=== PATIENT | female | born 1960 | race Caucasian/White ===

== ENCOUNTER 2024-09-30 10:46 | Emergency (ER) | payer BC, SELFPAY ==
--- NOTE | 2024-09-30 10:46 | ECG_ITS ---
APPROVED REPORT Exam: Resting ECG HR:78 bpm ECG Measurements Heart Rate 78 AXES LA 155 P 76 QRSd 89 QRS 81 QT 358 T 66 QTc 391 Conclusion SINUS RHYTHM POSSIBLE RIGHT VENTRICULAR CONDUCTION DELAY [RSR (QR) IN V1/V2] BORDERLINE ECG UNCONFIRMED REPORT Electronically signed by : SYD PITT, 10/02/2024 02:37:24
[2024-09-30 10:49] VITALS: BP 153/99; PULSE 79; RESP 17; TEMP 36.8; O2SAT 98; BMI 20.3
--- NOTE | 2024-09-30 11:11 | XR_ITS ---
FINAL REPORT CLINICAL HISTORY: chest pain FINDINGS: A portable view of the chest is obtained. Cardiac and mediastinal silhouettes are normal. There is a spiculated 24 mm right lower lung nodule concerning for neoplasm. There is no pleural effusion or pneumothorax. IMPRESSION: Spiculated right lower lung nodule concerning for neoplasm. Recommend chest CT with contrast. Reviewed, Interpreted and Dictated by Patria Burrows MD Transcribed by Mitzy Lopez Authenticated and [facility]
[2024-09-30 11:18] LABS: Basophils # 0.1 K/mm3 (0-0.2); Basophils % 2.1 % (0.1-2.0); Chloride 104 mmol/L (98-107); Eosinophils # 0.1 K/mm3 (0.0-0.4); Eosinophils % 2.1 % (0.1-12.0); Hematocrit 40.5 % (37.0-47.0); Hemoglobin 13.6 g/dL (12.2-16.2); Lymphocytes # 1.6 K/mm3 (0.7-4.5); Lymphocytes % 32.9 % (10-50); Mean Corpuscular HGB Conc 33.6 g/dL (31.8-35.4); Mean Corpuscular Hemoglobin 30.4 pg (27.0-31.2); Mean Corpuscular Volume 90.4 fl (81-99); Mean Platelet Volume 10.3 fl (7.4-10.4); Monocytes # 0.5 K/mm3 (0.1-1.0); Monocytes % 10.3 % (1.7-9.3); Neutrophils # 2.5 K/mm3 (1.8-7.8); Neutrophils % 52.4 % (37.0-80.0); Platelet Count 285 K/mm3 (142-424); Red Blood Count 4.48 M/mm3 (4.20-5.40); Red Cell Distribution Width 13.8 % (11.5-17.5); White Blood Count 4.7 K/mm3 (4.8-10.8)
[2024-09-30 11:19] LABS: Albumin Level 4.1 g/dl (3.5-5.0); Potassium 4.6 mmoL/L (3.5-5.1); Sodium 136 mmol/L (136-145)
[2024-09-30 11:21] LABS: Blood Urea Nitrogen 22 mg/dl (7-17); Creatinine Clearance Estimated 54 mL/min (50-200); Estimated Glomerular Filt Rate 73 ml/min (>60); GFR (African American) 88 ML/MIN (>60)
[2024-09-30 11:22] LABS: Alanine Aminotransferase 26 U/L (12-78); Albumin/Globulin Ratio 1.8 (1.1-1.8); Alkaline Phosphatase 95 U/L (38-126); Anion Gap 11.6 mEq/L (5-15); Aspartate Amino Transferase 35 U/L (14-36); Calcium 10.3 mg/dl (8.4-10.2); Carbon Dioxide 25 mmol/L (22.0-30.0); Globulin 2.3 g/dL (1.3-3.2); Glucose 91 mg/dl (74-100); Total Protein,Serum 6.4 g/dl (6.3-8.2)
[2024-09-30 11:34] LABS: Troponin I < 0.01 ng/ml (0.00-0.034)
--- NOTE | 2024-09-30 12:16 | ED_ITS ---
<Statement entered by Litzy Huerta MD - 10/01/24 16:07> I was consulted by the ALVARO, and we discussed the complexity of the problems being addressed. I approved the treatment and management plan for this patient's care in the emergency department, thus performing a substantive portion of the medical decision making. Litzy Huerta MD, VISHAL, FACEP Discharge Plan Disposition Patient Disposition: Home, Self-Care Condition: Good Prescriptions Prescriptions: New levofloxacin 750 mg tablet 750 mg PO DAILY 10 Days Qty: 10 0RF Referrals Follow up/Referrals: Provider,David, [Primary Care Provider] - See instructions Activity Restrictions/Add. Instructions Additional Instructions/Restrictions: You have been diagnosed with bronchopneumonia and has started you on antibiotic that I have sent the prescription to your pharmacy. Please take it till its gone. Follow-up with your PCP at the first part of next week for both recheck of your pneumonia and also about the lung nodule that we discussed. You also should reestablish care with your oncologist if you have not seen them in a while. Return to the ER for any worsening signs or symptoms as needed. Clinical Impressions Clinical Impression: Bronchopneumonia, Lung nodule Instructions Patient Instructions: DI for Pneumonia -- Adult, DI for Pulmonary Nodule Print Language Print Language: Persian Discharge ED Provider: Litzy Huerta [facility] General Chief Complaint: Chest Pain Stated Complaint: CP Time Seen by Provider: 09/30/24 12:15 Mode of Arrival: Family Vehicle Source of Information: Patient Limitations: No Limitations Description of Symptoms (Recalled from ER Triage Doc. by RN): Pt c/o midsternal chest pain that began last night durning evening chores. States she would feel intermittent pain with movement and bending over. The discomfort radiates to her LUE. Reports that it feels heavy when she is trying to move it. No weakness noted. NIHSS 0. She has a hx of breast cancer w/ bilateral mastectomy. History of Present Illness HPI narrative: Patient presents for evaluation of chest pain. 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 It has persisted throughout the day as well. It does not radiate. She feels like it is in the bone . She denies any fever chills hemoptysis hematochezia melena nausea vomiting diarrhea. Patient reports that the pain radiates up to her left neck and down her left arm. Patient does not have a cardiac history but does have a history of breast cancer status postmastectomy has long since completed treatment. She has not seen her oncologist in over 2 years. Related Data Previous Rx's ?Medication ?Instructions ?Recorded levofloxacin 750 mg tablet 750 mg PO DAILY 10 days #10 tabs 09/30/24 Allergies Allergy/AdvReac Type Severity Reaction Status Date / Time codeine Allergy Unknown NECK RASH Verified 09/30/24 13:21 erythromycin base Allergy Unknown NECK RASH Verified 09/30/24 13:21 [facility] Disclaimer: The information contained in this section may have been updated after the patient was seen, as this information can be updated by other users. Social History (System 02/05/18 @ 08:25 by Kallie Dawn) Smoking Status: Never smoker alcohol intake: never current occupational status: retired Travel in the last 8 weeks: None ROS Obtained: Yes Systems reviewed as appropriate & no additional complaints except as documented Physical Exam General General appearance: alert and in no apparent distress Respiratory Respiratory exam: Present normal lung sounds bilaterally Cardiovascular Cardiovascular exam: Present regular rate Neurological Exam Neurological exam: Present alert and oriented X3 Skin Skin exam: Present warm HEART Score HEART Score HEART Score assessment performed?: Yes History (anamnesis): Slightly suspicious ECG: Normal Age: 45-65 years Risk factors: 3 or more risk factors Troponin: </= normal limit HEART Score: 3 Critical Care Critical Care Time Critical Care Time: No Medical Decision Making Medical Records Medical records reviewed: Yes I reviewed the patient's medical records. Ehsan Inquiry Pt receiving controlled substance: No Vital Signs Vital Signs: 09/30/24 10:49 09/30/24 14:39 Temperature 98.3 F 98.2 F Temperature Source Oral Oral Pulse Rate 62 Pulse Rate [Right] 79 Respiratory Rate 17 17 Blood Pressure 149/78 H Blood Pressure [Right Arm] 153/99 H Blood Pressure Mean [Right Arm] 117 Blood Pressure Source Automatic Cuff Blood Pressure Source [Right Arm] Automatic Cuff 02 Sat by Pulse Oximetry 98 Oxygen Delivery Method Room Air Room Air Lab Data Lab results reviewed: Yes I reviewed the patient's lab results. Labs: Lab Results 09/30/24 10:50: WBC 4.7 L, RBC 4.48, Hgb 13.6, Hct 40.5, MCV 90.4, MCH 30.4, MCHC 33.6, RDW 13.8, Plt Count 285, MPV 10.3, Neut % (Auto) 52.4, Lymph % (Auto) 32.9, [place] % (Auto) 10.3 H, Eos % (Auto) 2.1, Baso % (Auto) 2.1 H, Neut # (Auto) 2.5, Lymph # (Auto) 1.6, [place] # (Auto) 0.5, Eos # (Auto) 0.1, Baso # (Auto) 0.1, D-Dimer 0.63 H, Sodium 136, Potassium 4.6, Chloride 104, Carbon Dioxide 25, Anion Gap 11.6, BUN 22 H, Creatinine 0.80, Estimated Creat Clear 54, Estimated GFR 73, Est GFR ( Amer) 88, Glucose 91, Calcium 10.3 H, Total Bilirubin 1.0, AST 35, ALT 26, Alkaline Phosphatase 95, Troponin I < 0.01, NT-Pro-B Natriuret Pep 63.0, Total Protein 6.4, Albumin 4.1, Globulin 2.3, Albumin/Globulin Ratio 1.8, Lipase 79, HIV Ag/Ab Combo Qual Negative 09/30/24 10:50 09/30/24 10:50 Response Orders (Tests/Meds): ED MEDICATIONS Discontinued Medications Generic Name Dose Route Start Last Admin Trade Name Alexxq PRN Reason Stop Dose Admin Acetaminophen 1,000 mg 09/30/24 12:29 09/30/24 13:45 Acetaminophen 500mg Tab PO 09/30/24 12:30 1,000 mg ONCE ONE Administration Belladonna Alkaloids 60 ml 09/30/24 12:29 09/30/24 13:42 Belladonna Alkaloids 60 Ml Ml PO 09/30/24 12:30 60 ml ONCE ONE Administration Iopamidol 75 ml 09/30/24 13:37 09/30/24 13:37 Iopamidol-370 (76%);100ml Bottle IV 09/30/24 13:38 75 ml ONCE ONE Administration Sodium Chloride 10 ml 09/30/24 13:37 09/30/24 13:37 Sodium Chloride 0.9% 10ml Syr (Rad Only) IV 09/30/24 13:38 10 ml ONCE ONE Administration ORDERS Category Date Time Status CT chest w con Stat Cat Scan 09/30/24 13:20 Completed CXR --portable [XR chest portable] Stat Exams 09/30/24 11:11 Completed BNP [NT Pro Brain Natriuretic Pep.] Stat Lab 09/30/24 10:50 Completed Complete Blood Count Auto Diff Stat Lab 09/30/24 10:50 Completed Comprehensive Metabolic Panel Stat Lab 09/30/24 10:50 Completed D-Dimer Stat Lab 09/30/24 10:50 Completed HIV Combo Stat Lab 09/30/24 10:50 Completed Hep C Ab with Reflex to RNA Stat Lab 09/30/24 10:50 Received Lipase Stat Lab 09/30/24 10:50 Completed Troponin I Stat Lab 09/30/24 10:50 Completed MDM Narrative Medical Decision Narrative: In summary patient is a 64-year-old female who presents to the emergency department for evaluation of chest pain. Patient is dynamically stable upon arrival, afebrile. Physical exam is unremarkable nonfocal including no reproducible chest pain on palpation, normal heart sounds, normal breath sounds, no abdominal tenderness with normal abdominal exam with no rebound or guarding or rigidity. Normal sinus rhythm on the bedside monitor stable vital signs. Differential diagnosis includes ACS versus PE versus viral bacterial infection versus musculoskeletal cause etc. Initial workup will be conducted with hematologic labs twelve-lead EKG plain film chest x-ray. Initial interventions include Tylenol and GI cocktail. Initial workup reviewed by me shows that her hematologic labs are nonactionable with a normal troponin normal twelve-lead EKG without evidence of ACS, and my informal interpretation of her plain film chest x-ray shows a right lateral lower lobe spiculated lesion with no previous films to compare. Upon repeat evaluation patient reported no improvement with her symptoms after initial intervention. She also did not know about a nodule in her lung from previous.. Given this have ordered a CT scan of the chest with contrast to further characterize this lesion. My informal interpretation of this CT scan shows that she does have a spiculated lesion with no evidence of any other neoplastic features elsewhere and patient has bilateral upper lobe findings suggestive of possible early bronchopneumonia. Given this patient will be started on antibiotics with follow-up with her PCP next week and a prescription sent to her pharmacy and first dose given here, and patient referred back to her oncology for further characterization and evaluation of this spiculated right lung nodule.
[2024-09-30 12:21] LABS: HIV Combo NEGATIVE (Negative)
[2024-09-30 12:42] LABS: Lipase 79 U/L (23-300)
[2024-09-30 12:47] LABS: D-Dimer 0.63 ug/mL (0.0-0.5)
--- NOTE | 2024-09-30 13:20 | CT_ITS ---
FINAL REPORT TECHNIQUE: Thin section axial images were obtained from the thoracic inlet through the upper abdomen after intravenous contrast injection. Reconstruction images were obtained from the axial data. Exam was performed using dose reduction technique. CLINICAL HISTORY: L lung nodule, h/o breast cancer, chest pain FINDINGS: There is no mediastinal, hilar, or axillary lymphadenopathy. There is no pleural or pericardial effusion. There are postop changes from bilateral mastectomy. There is a right mid lung, 24 x 21 mm, nodule concerning for malignancy which could be metastatic or related to primary neoplasm. There are also reticulonodular opacities in the right midlung, more superiorly, and within the medial left upper lobe at the lung. These findings are concerning for pneumonia. Limited evaluation of the upper abdomen is without acute abnormality. No acute osseous abnormality. IMPRESSION: Right midlung, 24 mm, nodule concerning for malignancy help. This is either metastasis from breast cancer or primary bronchogenic carcinoma. Bilateral bronchopneumonia. Reviewed, Interpreted and Dictated by Patria Burrows MD Transcribed by Kristina Arriaza Authenticated and [facility]
[2024-09-30] MEDS: SODIUM CHLORIDE 0.9% 10ML SYR (RAD ONLY) 10 ML IV (13:37)
[2024-09-30] MEDS: IOPAMIDOL-370 (76%);100ML BOTTLE 75 ML IV (13:37)
[2024-09-30] MEDS: BELLADONNA ALKALOIDS 60 ML ML PO (13:42)
[2024-09-30] MEDS: ACETAMINOPHEN 500MG TAB 1000 MG PO (13:45)
--- NOTE | 2024-09-30 14:24 | PC.NURSE ---
pt. laying in bed at this time. no needs. call light in reach
[2024-09-30 14:39] VITALS: BP 149/78; PULSE 62; RESP 17; TEMP 36.8; O2SAT 98
[2024-10-03 16:10] LABS: HCV Ab Reactive (Non Reactive)
== END 2024-09-30 14:53 | disposition home or self-care (01) ==
PROVIDERS: Physician Assistant; Emergency Provider Student in an Organized Health Care Education/Training Program
DX: R91.1 Solitary pulmonary nodule (principal); J18.0 Bronchopneumonia, unspecified organism; R07.9 Chest pain, unspecified; M79.602 Pain in left arm; M54.2 Cervicalgia
CPT/HCPCS: 71045; 71260; 80053; 83690; 83880; 84484; 85025; 85378; 86803; 87389; 93005; 99285; Q9967

== ENCOUNTER 2025-07-21 09:33 | Outpatient (CLI) | payer BC, SELFPAY ==
--- OUTSIDE RECORDS SUMMARY | 2025-07-21 09:37 | XMS_ITS ---
Author Organization Unknown ENCOUNTERS Encounter Performer Location Date Diagnosis Diagnosis Status Pre Admit [facility] [address] [place] [address] [id number] Emergency [facility] [address] [place] [address] [id number] ALFONSO *Note: Encounters from your own facility or health system may be excluded. Allergies, Adverse Reactions, Alerts Allergen Type Severity Identification Date codeine drug allergy 20180205 erythromycin base drug allergy 20180205 Medications Name Date Quantity Days Supplied GPI Number
--- OUTSIDE RECORDS SUMMARY | 2025-07-21 09:38 | XMS_ITS | Data Portability ---
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 Procedures None recorded. Surgeries None recorded. Imaging None recorded. Medication Orders fluoroura cil 5 % topical cream 2024 025 [facility], [address], [address], 01/16/2025 10:29:59 Patient TargetsNo targets recorded. Patient Instructions Encounter Date Encounter Id Patient Instructions Last Modified By Organization Details Last Modified Time 06/17/2023 [id number] Education/alt/ri s ks/benefits/SE of Dx & Tx discussed. Daily UV protection with broad-spectrum SPF 30+ on exposed areas recommended. Pt encouraged to RTC with any new/changing lesions. [email or web address] Not available 05/27/2023 11:20:35 01/09/2025 [id number] Education/alt/ri s ks/benefits/SE of Dx & Tx discussed. Daily UV protection with broad-spectrum SPF 30+ on exposed areas recommended. Pt encouraged to RTC with any new/changing lesions. [email or web address] Not available 01/05/2025 13:52:08 Reason for Referral None Reported. Results Created Date Observation Date Name Description Value Unit Range Abnormal Flag Note LastModifiedBy Organization Detail LastModifiedTime 01/10/2001/09/2025 SURGI JAZMIN surgical SEE BELOW normal Surgi jazmin Patho logy Repor t NAME: GARRY MORA PATH: [id number] DATE of : 03/04 3 Copy to: Diagn osis: Left nasal bridg e: Actin ic kerat osis with chron ic infla mmati on. SOURC E OF SPECI MEN: SKIN BIOPS Y, LEFT NASAL BRIDG E CLINI JAZMIN INFOR MATIO N: R/O AK vs BCC D 48.5 Gross Descr iptio n: Sherita nt's name and date of verif ied. Recei neema in forma gene label ed with the sherita nt's name and desig nated left nasal bridg e is a shave biops y of skin (0.4 x 0.2 x less than 0.1 cm). The epide rmal surfa ce is smith and rough ened. The sonia n is inked blue. The speci men is bisec ward and entir dulce submi tted in one casse tte label ed A1. SB 01/09 04:37 PM Micro scopi c Descr iptio n: A micro scopi c exami natio n has been perfo rmed and the resul t(s) are as noted above . No invas jose juan carci noma is seen. SARINA CHU MD Emily d Out Date: 01/10 10:43 Page 1 of 1 Not Available [facility] [address] [place] [address], [place], [address], 01/10/2025 10:43:26 Result Notes None recorded. Procedures Surgical History Date Name Laterality Status Provider Name and Address Organization Details Recorded Time Biopsy Skin Lesion; Tangential completed Nancy Amato [facility] 01/09/2025 12:34:51 Imaging Results None recorded. Procedure Notes None recorded. Medical Equipment None Reported. Allergies Allergen ID Allergen Name Allergen Category Reaction Reaction Severity Criticality Documentation Date Start Date Code Code System Note Provider Name and Address Organization Details Recorded Time 359729 codeine medicatio n Not available Not available Not available 08/22/20162011 2670 RxNorm Comme nt: Creat ed By: Paco Moore;Cr eated Date: 2011 1:48: 42 PM; Not Available [facility] 6 02:59:45 [id number] E-Mycin medicatio n Not available Not available Not available 08/22/2016201160 8 RxNorm Comme nt: Creat ed By: Paco Moore;Cr eated Date: 2011 1:48: 53 PM; Not Available [facility] 6 09:17:38 Medications Name Sig Start Date Stop Date Status Note LastModified by Organization Details LastModified Time Maxalt-ML T 10 mg disintegr ating tablet At Onset 01/16 completed Duration : 30 days;Alexx quency: at onset;Al t Frequenc y: prn;Medi cation Descript ion: rizatrip smith; Dosage:1 ; Route:or al; refills: 12; Quantity :9 tablet, disinteg rating Not Available Not Available Not Available fluoroura cil 5 % topical cream APPLY A THIN LAYER TO AFFECTED LESIONS ON FACE BY TOPICAL ROUTE 2 TIMES PER DAY FOR 3 WEEKS (21 DAYS) 2024 active Not Available Not Available Not Avai lable lamotrigi ne 25 mg tablet Bedtime 01/16 completed Frequenc y: hs;Medic ation Descript ion: lamotrig ine; Dosage:2 ; Route:or al; refills: 12; Quantity :60 tablet Not Available Not Available Not Available gabapenti n 300 mg capsule Take 1 capsule twice a day by oral route. active Not Available Not Available No t Available tramadol active Not Available Not Avai lable Not Available baclofen active Not Available Not Avai lable Not Available promethaz ine 2012 active Instruct ions: 0.1 ml to wrist q 4h prn nausea;M edicatio n Descript ion: prometha zine; Route:to pical; refills: 6; Quantity :2 ml gel Not Available Not Available Not Available Asprin Ec Low Dose active Not Available Not Available Not Available Cambia 50 mg oral powder packet At Onset 01/16 completed Duration : 30 days;Alexx quency: at onset;Me dication Descript ion: diclofen ac; Dosage:1 ; Route:or al; refills: 6; Quantity :10 powder for reconsti tution Not Available Not Available Not Available Flonase Allergy Relief 50 mcg/actua tion nasal spray,kenzie pension Daily 01/16 completed Duration : 30 days;Ins truction s: One spray in each nostril; Frequenc y: daily;Me dication Descript ion: fluticas one nasal; Dosage:2 sprays; Route:na luisana; refills: 6; Quantity :1 spray Not Available Not Available Not Available Ajovy 225 mg/1.5 mL subcutane ous auto-inje ctor Inject by subcutan eous route. active Not Available Not Available No t Available Kesimpta Pen active Not Available Not Available Not Available Vitals None Recorded Social History None recorded. Functional Status None recorded. Mental Status None recorded. Family History Nothing Reported. Medical History Condition Response Varicose Veins N Autoimmune disease Y Skin Problems N Squamous Cell Carcinoma N Basal Cell Carcinoma N Skin Cancer N Eczema N Melanoma N Other Skin Condition N Acne N Gynecological HistoryNo gynecological history recorded. Obstetrics History GPAL:G 0 P 0 0 0 0 Past Encounters Encounter ID Performer Location Encounter Start Date Encounter Closed Date Diagnosis/Indication Diagnosis SNOMED-CT Code Diagnosis ICD10 Code Diagnosis IMO Codes Diagnosis Note [id number] JOAQUIM CMKEON PA-C [facility] [address] [place] [address] 06/17/2023 11:18:59 06/17/2023 12:17:06 Solar lentiginosis 077466736 L81.4 Benign reassuranc e Patient ad vised about exposure to the sun 894599621 Z71.89 Counseled on sun protective clothing/h ats and daily UV protection with otc broad-spec trum SPF 30+ on exposed areas. Regular self-skin exams recommende d. Pt encouraged to RTC with any new/changi ng lesions. Actinic keratosis 007 L57.0 Nasal bridgeSupe rficial but wide lesionReco mmend topical therapyDis cussed se/r/b/dos ing of Klysiri 1% ointment. Provided sample packets for tx course Start Klysiri to lesion located on her noseApply to AA for 5 days, wash hands after treatment5 sample boxes [facility] [phone] 01Lot: [id number] p: 06/2025 Recheck in 2 months Hemangioma 557479339 D18 .00 Benign reassuranc e Raised kassandra orrheic keratosis [id number] 67368 L82.1 Benign reassuranc e Multiple b enign melanocytic nevi 738997491 D22.9 Benign reassuranc e History of malignant neoplasm of breast 506590587 Z85.3 Remission since 2014 s/p b/l complete mastectomy [id number] JOAQUIM MCKEON PA-C [facility] [address] [place] [address] 01/09/2025 11:36:07 01/09/2025 12:36:25 Neoplasm of uncertain behavior of skin 30518138 D48.5 L nasal bridge - R/O AK vs BCC Shave bx taken todaySee procedure noteConsen t signed, photo takenPatie nt tolerated wellWound care instructio ns given with suppliesF/ up per path Hx of AK on anterior nasal bridge treated with Klysiri ointment in 2022, resolved [id number] JOAQUIM MCKEON PA-C [facility] [address] [place] [address] 01/16/2025 09:42:40 01/16/2025 11:32:05 Lentiginosis 549113665 L81.4 Benign reassuranc e Multiple b enign melanocytic nevi 542076825 D22.9 Benign reassuranc e Hemangioma 132420270 D18 .00 Benign reassuranc e Raised kassandra orrheic keratosis [id number] 85185 L82.1 Benign reassuranc e Actinic keratosis 007 L57.0 Discussed pre-malign ant dx caused from chronic UV damageTx options reviewedWi ll treat bx proven AK on L nasal bridge with 5FU BID x3 weeks. SE/R/B discussed. Handout provided and reviewed with patient.Al so treat R jaw line nad L upper cutaneous lip, or gave option to treat full facef/u 3 months to evaluate tx response Patient ad vised about exposure to the sun 566724831 Z71.89 Counseled on sun protective clothing/h ats and daily UV protection with otc broad-spec trum SPF 30+ on exposed areas. Regular self-skin exams recommende d. Pt encouraged to RTC with any new/changi ng lesions. Health Concerns Section Related Observation LastModified by Organization Detai ls LastModified Time None Recorded Concern Status LastModified by Organization Details LastModified Time None Recorded Advance Directives Directive None Recorded Payers Insurance Date Sequence Insurance Name Policy Number Policy Villanueva Covered Member ID Villanueva Member ID Guarantor Name 01/16/2025 1 [employer] [facility] [place] [id number] Margie Almanza and 01/16/2025 1 [facility] [place] [id number] Margie Almanza and 04/16/2025 1 [employer]-ID (O) [id number] Margie Yousif [id number] Margie Almanza and 01/16/2025 1 [employer] [facility] [address] [place] [id number] Margie Almanza and Notes Date Note Type Note Provider Name and Address Organization Details Recorded Time 06/17/2023 text/html ROS as noted in the HPI New Patient Patient presents to clinic today regarding a lesion of concern on her across the bridge of her nose. She is a former patient at [facility]. She reports she saw a PA at [facility] about a month ago and had a precancerous lesion burned off L side of her nose and L inner canthus. She reports they resolved. She would like a FSE today as well. No personal history of skin cancer. +tanning bed use-history of blistering sunburn-daily sunscreen use Denies any other new, changing, or bleeding lesions, or other rashes, feels well, presents in a good mood, and has no family history of melanoma. JOAQUIM MCKEON PA-C [address] [place], [address], [facility] 06/17/2023 13:11:27 01/09/2025 text/html ROS as noted in the HPI Established patient Patient presents to clinic today regarding lesion of concern on her left upper nasal sidewall that is tender, scaly and growing and has been present for 6 months. Denies any other new, changing, or bleeding lesions, or other rashes, feels well, presents in a good mood, and has no family history of melanoma. JOAQUIM MCKEON PA-C [address] [place], [address], [facility] 01/09/2025 18:04:34 01/16/2025 text/html ROS as noted in the HPI Established patient Patient presents to clinic today discuss 5FU to treat bx proven AK of L nasal bridge. Also here for FSE. Patient would like to discuss lesion on left upper lip that comes and goes and is usually rough. Denies any other new, changing, or bleeding lesions, or other rashes, feels well, presents in a good mood. JOAQUIM MCKEON PA-C [address] [place], [address], [facility] 01/16/2025 10:30:41 OBGyn Episode No OBEpisode recorded.
[2025-07-21 10:29] LABS: Hematocrit 41.5 % (37.0-47.0); Hemoglobin 13.5 g/dL (12.2-16.2); Immature Granulocytes % 0.4 %; Mean Corpuscular HGB Conc 32.5 g/dL (31.8-35.4); Mean Corpuscular Hemoglobin 30.1 pg (27.0-31.2); Mean Corpuscular Volume 92.6 fl (81-99); Nucleated Red Blood Cells % 0 %; Platelet Count 262 K/mm3 (142-424); Red Blood Count 4.48 M/mm3 (4.20-5.40); Red Cell Distribution Width-SD 46.5 fL; White Blood Count 5.4 K/mm3 (4.8-10.8)
[2025-07-21 11:13] LABS: Albumin Level 4.0 g/dl (3.5-5.0); Chloride 101 mmol/L (98-107); Potassium 4.5 mmoL/L (3.5-5.1); Sodium 134 mmol/L (136-145)
[2025-07-21 11:15] LABS: Alanine Aminotransferase 16 U/L (12-78); Aspartate Amino Transferase 30 U/L (14-36); Blood Urea Nitrogen 17 mg/dl (7-17); Creatinine,Serum 0.70 mg/dl (0.52-1.04); Estimated Glomerular Filt Rate 85 ml/min (>60); GFR (African American) 102 ML/MIN (>60)
[2025-07-21 11:16] LABS: Albumin/Globulin Ratio 1.7 (1.1-1.8); Alkaline Phosphatase 70 U/L (38-126); Anion Gap 7.5 mEq/L (5-15); Bilirubin,Total 1.1 mg/dl (0.2-1.3); Calcium 8.7 mg/dl (8.4-10.2); Carbon Dioxide 30 mmol/L (22.0-30.0); Cholesterol 174 mg/dl (140-200); Globulin 2.4 g/dL (1.3-3.2); Glucose 86 mg/dl (74-100); HDL Cholesterol 100 mg/dl (40-60); Magnesium 1.9 mg/dl (1.6-2.3); Total Protein,Serum 6.4 g/dl (6.3-8.2); Triglycerides 47 mg/dl (30-150)
[2025-07-21 11:32] LABS: 25-OH Vitamin D, Total 49.1 ng/mL (30-100)
[2025-07-21 11:47] LABS: Thyroid Stimulating Hormone 2.15 uIU/mL (0.465-4.68)
== END 2025-07-21 23:59 | disposition home or self-care (01) ==
LOC: LAB 09:34
PROVIDERS: PCP Internal Medicine Adolescent Medicine; Visit Provider Nurse Practitioner Family
DX: Z00.00 Encounter for general adult medical examination without abnormal findings (principal); Z86.39 Personal history of other endocrine, nutritional and metabolic disease
CPT/HCPCS: 36415; 80053; 80061; 82306; 83735; 83970; 84443; 85025